=== PATIENT | female | born 1995 | race Caucasian/White ===

== ENCOUNTER 2016-11-16 20:52 | Emergency (ER) | payer BC, OTHER ==
[2016-11-16 21:19] VITALS: BP 111/77; BMI 26.4
--- NOTE | 2016-11-16 21:40 | DR.GENAD ---
HPI - PCP Primary Care Physician: NFD - Complaint/Symptoms Chief Complaint Doctors Comments: Patient denies a history of smoking, or cardiopulmonary disease. Denies recent history of upper respiratory infection. She reports tichtness in her chest. Chief Complaint:: TIGHTNESS IN CHEST 4-5 DAYS, TIRED Self Treatment fo Chief Complaint: PEPTO BISMAL - Source History Provided: Patient - Mode of Arrival Mode of Arrival: Ambulatory - Timing Onset of Chief Complaint: 11/11/16 PMH - PMH Past Medical History: Yes Past Medical History: Asthma Past Surgical History: Yes Past Surgical History Comment: EYE SURGERY - Family History History of Family Medical Conditions: Yes Family Medical History: Hypertension - Social History Does patient currently use any type of tobacco product: No Have you used tobacco products in the last 12 months: No Type of Tobacco Use: None Does any household member use tobacco: No Alcohol Use: None Do you use any recreational Drugs:: No Lives With: Family Lives Where: Home - infectious screening In the last 2 months have you had wt loss of >10#?: NO Have you had fever, night sweats or hemotysis?: No Have you traveled outside the country in the last 6 months?: No Isolation: Standard ROS - Review of Systems Constitutional: No Symptoms Reported Eyes: No Symptoms Reported ENTM: No Symptoms Reported Respiratoy: No Symptoms Reported Cardiovascular: No Symptoms Reported Gastrointestinal/Abdominal: No Symptoms Reported Genitourinary: No Symptoms Reported Neurological: No Symptoms Reported PE - Vital Signs Vitals: Temperature 99.3 F Pulse Rate 68 Respiratory Rate 16 Blood Pressure [Right Arm] 119/89 Blood Pressure 111/77 O2 Sat by Pulse Oximetry 98 - General Limitations: Language Barrier General Appearance: Alert, In No Apparent Distress - Head Head Exam: Normal Inspection, Atraumatic - Eyes Eye exam: Normal Appearance, PERRL, EOMI - ENT ENT Exam: Normal Exam External Ear Exam: Normal External Inspection TM/Canal Exam: Bilateral Normal Nose Exam: Normal Nose Exam, Sinus Tenderness Mouth Exam: Normal Inspection, Drooling Throat Exam: Normal Inspection - Neck Neck Exam: Normal Inspection, Full ROM - Chest Chest Inspection: Normal Inspection, Symmetric Chest Wall Rise - Respiratory Respiratory Exam: Normal Lung Sounds Bilat Respiratory Exam: Bilateral Clear to Auscultation - Cardiovascular Cardiovascular Exam: Regular Rate, Normal Rhythm - Abdominal Exam Abdominal Exam: Normal Inspection, Normal Bowel Sounds Abdominal Tenderness: negative: RUQ, RLQ, LUQ, LLQ, Epigastrium, Suprapubic, Diffuse, Mild, Moderate, Severe, Other - Extremities Extremities Exam: Normal Inspection, Full ROM - Back Back Exam: Normal Inspection, Full ROM - Neurologic Neurological Exam: Alert, Oriented X3, CN II-XII Intact - Psychiatric Psychiatric Exam: Normal Affect - Skin Skin Exam: Warm, Dry, Intact Course - Reevaluation 1st: Unchanged ROR - XRAY XRAY Interpreted by: Radiologist (No cardiopulmonary disease) - Diagnosis Discharge Problem: Normal exam - Discharge Plan Condition: Stable - Follow ups/Referrals Follow ups/Referrals: NFD,None [Primary Care Provider] - 3 days - Instructions
--- NOTE | 2016-11-16 22:21 | RAD ---
EXAM: Chest X-ray INDICATION: Chest pain COMPARISION: No prior TECHNIQUE: PA and Lat, 2 view FINDINGS: The lungs are clear and the lung volumes are within normal limits. No pleural effusion or pneumothor ax. The cardiac silhouette and mediastinum are normal. The regional skeleton is intact. IMPRESSION: Normal Chest X-Ray Reported By:
== END 2016-11-16 22:40 | disposition home or self-care (01) ==
LOC: ER 20:52
DX: R07.89 Other chest pain (principal); Z00.6 Encounter for examination for normal comparison and control in clinical research program
CPT/HCPCS: 71020; 99282; 99283

== ENCOUNTER 2016-11-27 21:42 | Emergency (ER) | payer BC ==
[2016-11-27 21:48] VITALS: BP 115/74; BMI 25.7
--- NOTE | 2016-11-27 22:03 | DR.GENAD ---
HPI - PCP Primary Care Physician: NFD - Complaint/Symptoms Chief Complaint Doctors Comments: Patient stuck a splinter of wood into left foot just prior to coming to ED today Chief Complaint:: PT HAS A PIECE OF WOOD STUCK INTO THE SOLE OF HER LT FOOT" - Source History Provided: Patient - Mode of Arrival Mode of Arrival: Wheelchair - Timing Onset of Chief Complaint: 11/27/16 PMH - PMH Past Medical History: Yes Past Medical History: Asthma Past Surgical History: Yes Past Surgical History Comment: EYE - Family History History of Family Medical Conditions: Yes Family Medical History: Hypertension - Social History Do you use any recreational Drugs:: No Lives With: Family Lives Where: Home - infectious screening In the last 2 months have you had wt loss of >10#?: NO Have you had fever, night sweats or hemotysis?: No Have you traveled outside the country in the last 6 months?: No Isolation: Standard ROS - Review of Systems Eyes: No Symptoms Reported ENTM: No Symptoms Reported Respiratoy: No Symptoms Reported Cardiovascular: No Symptoms Reported Gastrointestinal/Abdominal: No Symptoms Reported Genitourinary: No Symptoms Reported Neurological: No Symptoms Reported Musculoskeletal: No Symptoms Reported Integumentary: No Symptoms Reported Hematologic/Lymphatic: No Symptoms Reported Endocrine: No Symptoms Reported Psychiatric: No Symptoms Reported PE - Vital Signs Vitals: Temperature 99.5 F Pulse Rate 79 Respiratory Rate 18 Blood Pressure [Right Arm] 119/89 Blood Pressure 115/74 O2 Sat by Pulse Oximetry 99 - General Limitations: No Limitations General Appearance: Alert - Head Head Exam: Normal Inspection, Atraumatic - Eyes Eye exam: Normal Appearance, PERRL, EOMI - ENT ENT Exam: Normal Exam External Ear Exam: Normal External Inspection TM/Canal Exam: Bilateral Normal Nose Exam: Normal Nose Exam Mouth Exam: Normal Inspection Throat Exam: Normal Inspection - Neck Neck Exam: Normal Inspection - Chest Chest Inspection: Normal Inspection - Respiratory Respiratory Exam: Normal Lung Sounds Bilat Respiratory Exam: Bilateral Clear to Auscultation - Cardiovascular Cardiovascular Exam: Regular Rate, Normal Rhythm - Abdominal Exam Abdominal Exam: Normal Inspection Abdominal Tenderness: negative: RUQ, RLQ, LUQ, LLQ, Epigastrium, Suprapubic, Diffuse, Mild, Moderate, Severe, Other - Extremities Extremities Exam: Full ROM, Other (splinter in left foot plantar surface) - Back Back Exam: Normal Inspection, Full ROM - Neurologic Neurological Exam: Alert, Oriented X3, CN II-XII Intact - Psychiatric Psychiatric Exam: Normal Affect, Normal Mood - Skin Skin Exam: Warm, Dry ROR - Labs Reviewed Laboratory Results Reviewed?: Yes (Tetanus up to date) - XRAY XRAY Interpreted by: Self (splinter planter surface left foot 2-3cm) Procedures - Procedure Comments Procedures: Removed spliinter with forceps w/o problem - Diagnosis Discharge Problem: Foreign body foot/toe - Discharge Plan Condition: Stable - Follow ups/Referrals Follow ups/Referrals: NFD,None [Primary Care Provider] - 3 days - Instructions
--- NOTE | 2016-11-27 22:35 | RAD ---
HISTORY: Foreign body plantar aspect of left foot Study: Three views left foot Comparison: None Findings: There is a faint foreign body subcutaneously in the lateral plantar aspect of the foot measuring tricia roximately 6 millimeters in length and 1.5 millimeters thickness. Its attenuation suggest plastic or would as the cause of foreign body. No acute cortical disruption or dislocation can be identified. No significant soft tissue swelling or injury can be seen. The visualized portions of the talus an d calcaneus are unremarkable. IMPRESSION: 1. Subcutaneous lateral plantar foreign body Reported By:
== END 2016-11-27 22:36 | disposition home or self-care (01) ==
LOC: ER 21:42
PROC: 0HCNXZZ Extirpation of Matter from Left Foot Skin, External Approach (ICD-10-PCS; principal; 2016-11-27)
DX: S90.852A Superficial foreign body, left foot, initial encounter (principal); W45.8XXA Other foreign body or object entering through skin, initial encounter
CPT/HCPCS: 10120; 73630; 99282

== ENCOUNTER 2017-04-16 19:38 | Emergency (ER) | payer BC ==
[2017-04-16 19:44] VITALS: BP 122/86; BMI 24.5
--- NOTE | 2017-04-16 20:16 | DR.GENAD ---
HPI - Complaint/Symptoms Chief Complaint:: 6-7 WEEK OB LIGHT BLEEDING - Nurses notes reviewed Nurses Notes Review: Yes - Source History Provided: Patient - Mode of Arrival Mode of Arrival: Ambulatory - Timing Onset of Chief Complaint: 04/16/17 Came on: Gradually - Duration Duration: Intermittent How lon Duration: Hours - Location Location: vagina - Severity Severity: Mild - Modifying Factors Worsens:: nothing - Associated Signs and Symptoms Associated Signs and Symptoms: none PMH - PMH Past Medical History: No Past Medical History: Asthma Past Surgical History: Yes Past Surgical History Comment: EYE SURGERY 1999 - Family History History of Family Medical Conditions: No Family Medical History: Hypertension - Social History Does patient currently use any type of tobacco product: No Have you used tobacco products in the last 12 months: No Type of Tobacco Use: None Does any household member use tobacco: No Alcohol Use: None Do you use any recreational Drugs:: No Lives With: Family Lives Where: Home - infectious screening In the last 2 months have you had wt loss of >10#?: NO Have you had fever, night sweats or hemotysis?: No Have you traveled outside the country in the last 6 months?: No Isolation: Standard ROS - Review of Systems Constitutional: No Symptoms Reported Eyes: No Symptoms Reported ENTM: No Symptoms Reported Respiratoy: No Symptoms Reported Cardiovascular: No Symptoms Reported Gastrointestinal/Abdominal: No Symptoms Reported Genitourinary: Bleeding Neurological: No Symptoms Reported Musculoskeletal: No Symptoms Reported Integumentary: No Symptoms Reported Hematologic/Lymphatic: No Symptoms Reported Endocrine: No Symptoms Reported Psychiatric: No Symptoms Reported All Other Systems: Reviewed and Negative PE - Vital Signs Vitals: Temperature 98.9 F Pulse Rate 76 Respiratory Rate 18 Blood Pressure [Right Arm] 119/89 Blood Pressure 122/86 O2 Sat by Pulse Oximetry 99 - General Limitations: No Limitations General Appearance: Alert, In No Apparent Distress - Head Head Exam: Normal Inspection - Eyes Eye exam: Normal Appearance, EOMI. negative: Scleral Icterus, Conjunctival Injection - ENT ENT Exam: Normal Exam External Ear Exam: Normal External Inspection - Neck Neck Exam: Normal Inspection, Full ROM, Trachea Midline - Chest Chest Inspection: Normal Inspection - Respiratory Respiratory Exam: Normal Lung Sounds Bilat. negative: Accessory Muscle Use, Respiratory Distress - Cardiovascular Cardiovascular Exam: Regular Rate - Abdominal Exam Abdominal Exam: Normal Inspection, Normal Bowel Sounds, Soft. negative: Distention, Tenderness, Guarding - Extremities Extremities Exam: Normal Inspection, Full ROM - Back Back Exam: Normal Inspection - Neurologic Neurological Exam: Alert, Oriented X3, CN II-XII Intact - Psychiatric Psychiatric Exam: Normal Mood - Skin Skin Exam: Intact, Normal Color ROR - Labs Reviewed Laboratory: HCG, Quant 63293 mIU/mL (0-6) H 04/16/17 20:32 Specimen Type Clean catch urine 04/16/17 20:40 Urine Color Yellow (YELLOW) 04/16/17 20:40 Urine Appearance Clear (CLEAR) 04/16/17 20:40 Urine pH 6.0 (5.0 - 8.0) 04/16/17 20:40 Ur Specific [place] 1.020 (1.000-1.030) 04/16/17 20:40 Urine Protein Negative (NEGATIVE) 04/16/17 20:40 Urine Glucose (UA) Negative (NEGATIVE) 04/16/17 20:40 Urine Ketones Negative (NEGATIVE) 04/16/17 20:40 Urine Occult Blood 2+ (NEGATIVE) 04/16/17 20:40 Urine Nitrite Negative (NEGATIVE) 04/16/17 20:40 Urine Bilirubin Negative (NEGATIVE) 04/16/17 20:40 Urine Urobilinogen Normal (NORMAL) 04/16/17 20:40 Ur Leukocyte Esterase 1+ (NEGATIVE) 04/16/17 20:40 Urine RBC 0-2 /HPF (NEGATIVE) 04/16/17 20:40 Urine WBC 6-8 /HPF (NEGATIVE) 04/16/17 20:40 Ur Squamous Epith Cells Few /HPF (NEGATIVE) 04/16/17 20:40 Urine Bacteria 1+ /HPF (NEGATIVE) 04/16/17 20:40 Urine Mucus Moderate /HPF (NEGATIVE) 04/16/17 20:40 Ur Culture Indicated? Yes/culture set up 04/16/17 20:40 - XRAY XRAY Interpreted by: Radiologist XRAY Findings: Ob ultrsound: cardiac activity present no ectopic - Diagnosis Discharge Problem: Threatened in first trimester UTI (urinary tract infection) Qualifiers: Urinary tract infection type: acute cystitis Hematuria presence: without hematuria Qualified Code(s): N30.00 - Acute cystitis without hematuria - Discharge Plan Condition: Stable Prescriptions: Nitrofurantoin Macro [Macrobid Cap 100 mg Ext Rel] 100 mg PO BID #14 cap - Follow ups/Referrals Follow ups/Referrals: OLEG RODRIGUEZ [Primary Care Provider] - 3 days - Instructions
[2017-04-16 20:54] LABS: BILIRUBIN,URINE NEGATIVE (NEGATIVE); BLOOD/HEMOGLOBIN,URINE 2+ (NEGATIVE); GLUCOSE, URINE NEGATIVE (NEGATIVE); KETONES,URINE NEGATIVE (NEGATIVE); LEUKOCYTE ESTERASE ,URINE 1+ (NEGATIVE); NITRITES,URINE NEGATIVE (NEGATIVE); PROTEIN,URINE NEGATIVE (NEGATIVE); UROBILINOGEN,URINE NORMAL (NORMAL)
[2017-04-16 21:02] LABS: APPEARANCE,URINE CLEAR (CLEAR); COLOR,URINE YELLOW (YELLOW)
[2017-04-16 21:03] LABS: BACTERIA,URINE 1+ /HPF (NEGATIVE); MUCUS,URINE MODERATE /HPF (NEGATIVE); RBC,URINE 0-2 /HPF (NEGATIVE); SQUAMOUS EPITHELIAL CELL,UR FEW /HPF (NEGATIVE)
--- NOTE | 2017-04-16 21:47 | US ---
ULTRASOUND PELVIS FIRST TRIMESTER OB CLINICAL INDICATION: Early with spotting LMP: 02/18/2017 PROCEDURE: Grayscale and color Doppler images of the pelvis were obtained utilizing a transvaginal a pproach. COMPARISON: None FINDINGS: Intrauterine , with a crown-rump length measuring 0.4 cm, which is compatible wit h a gestational age of 6 weeks 0 days. Gestational age by LMP is 8 weeks 1 day. Cardiac motion detec carolin but unable to measure heart rate. IMPRESSION: 1. First trimester with gestational age of 6 weeks 0 days. Cardiac motion reportedly visua lized but unable to be measured. Reported By:
== END 2017-04-16 23:42 | disposition home or self-care (01) ==
LOC: ER 19:50
DX: O20.0 Threatened abortion (principal); N30.00 Acute cystitis without hematuria; Z3A.01 Less than 8 weeks gestation of pregnancy
CPT/HCPCS: 36415; 76801; 81001; 84702; 87086; 99283; 99284

== ENCOUNTER 2017-04-20 02:27 | Emergency (ER) | payer BC, OTHER ==
[2017-04-20 02:45] VITALS: BP 137/84; BMI 24.5
--- NOTE | 2017-04-20 02:52 | DR.GENAD ---
HPI - Complaint/Symptoms Chief Complaint Doctors Comments: Patient states that she had light bleeding this week. She spoke with Dr Infante today was advised to stay off feet. It appeared like she was trying to miscarrage. Patient denies pain. Chief Complaint:: BEGAN VAGINAL BLEEDING THIS AM. STATES THAT SHE PASSED SEVERAL CLOTS ABOUT 30 MINUTES AGO. 6 WEEKS 5 DAYS . DENIES ANY CRAMPING. Self Treatment fo Chief Complaint: NONE - Source History Provided: Patient - Mode of Arrival Mode of Arrival: Ambulatory - Timing Onset of Chief Complaint: 04/18/17 PMH - PMH Past Medical History: No Past Medical History: Asthma Past Surgical History: Yes Past Surgical History Comment: EYE SURGERY (1999) - Family History History of Family Medical Conditions: No Family Medical History: Hypertension - Social History Do you use any recreational Drugs:: No - infectious screening Have you traveled outside the country in the last 6 months?: No ROS - Review of Systems Eyes: No Symptoms Reported ENTM: No Symptoms Reported Respiratoy: No Symptoms Reported Cardiovascular: No Symptoms Reported Gastrointestinal/Abdominal: No Symptoms Reported Genitourinary: No Symptoms Reported Neurological: No Symptoms Reported Musculoskeletal: No Symptoms Reported Integumentary: No Symptoms Reported Hematologic/Lymphatic: No Symptoms Reported Endocrine: No Symptoms Reported Psychiatric: No Symptoms Reported All Other Systems: Reviewed and Negative PE - Vital Signs Vitals: Temperature 98.6 F Pulse Rate 86 Respiratory Rate 18 Blood Pressure [Right Arm] 119/89 Blood Pressure 137/84 O2 Sat by Pulse Oximetry 100 - General Limitations: No Limitations General Appearance: Alert, In No Apparent Distress - Head Head Exam: Normal Inspection, Atraumatic - Eyes Eye exam: Normal Appearance, PERRL, EOMI - ENT ENT Exam: Normal Exam External Ear Exam: Normal External Inspection TM/Canal Exam: Bilateral Normal Nose Exam: Normal Nose Exam, Sinus Tenderness Mouth Exam: Normal Inspection Throat Exam: Normal Inspection - Neck Neck Exam: Normal Inspection - Chest Chest Inspection: Normal Inspection - Respiratory Respiratory Exam: Normal Lung Sounds Bilat Respiratory Exam: Bilateral Clear to Auscultation - Cardiovascular Cardiovascular Exam: Regular Rate, Normal Rhythm - Abdominal Exam Abdominal Exam: Normal Inspection Abdominal Tenderness: negative: RUQ, RLQ, LUQ, LLQ, Epigastrium, Suprapubic, Diffuse, Mild, Moderate, Severe, Other - Back Back Exam: Normal Inspection, Full ROM - Neurologic Neurological Exam: Alert, Oriented X3, CN II-XII Intact - Psychiatric Psychiatric Exam: Normal Affect, Normal Mood - Skin Skin Exam: Warm, Dry, Intact ROR - XRAY XRAY Interpreted by: Radiologist (There is a fluid collection in the lower uterine segment. There is a 9mm echogenic focus within the fluid collection which could represent a hematoma. Findings may represent an incomplete . Short term followup is recommended) - Diagnosis Discharge Problem: Possible incomplete - Discharge Plan Condition: Stable - Follow ups/Referrals Follow ups/Referrals: OLEG RODRIGUEZ [Primary Care Provider] - 3 days - Instructions
--- NOTE | 2017-04-20 04:32 | US ---
Exam: Transvaginal pelvic ultrasound History: Vaginal bleeding, Comparison: No prior ultrasound for comparison Technique: Grayscale, color, and power Doppler imaging of the pelvis was performed using a transvagi nal approach. Findings: The uterus is 7.4 cm in length. There is a fluid collection in the lower uterine segment. There is a 9 mm round echogenic focus in the region of the cervical os. There is fluid in the cervi x. Conclusion: There is a fluid collection in the lower uterine segment. There is a 9 mm echogenic focus within the fluid collection which could represent a hematoma. Findings may represent an incomplete . S hort-term followup is recommended. Reported By:
== END 2017-04-20 04:57 | disposition home or self-care (01) ==
LOC: ER 02:27
DX: O03.9 Complete or unspecified spontaneous abortion without complication (principal)
CPT/HCPCS: 76801; 99284

== ENCOUNTER 2018-02-19 06:30 | Inpatient (IN) ==
[2018-02-19] MEDS ORDERED: D5 1/2 NS 1000 ML 1,000 ML IV ONE (06:31)
[2018-02-19] MEDS ORDERED: D5 1/2 NS 1L W PITOCIN 20 UNITS/L 20 UNITS/1,000 ML BAG IV ONE (06:31)
[2018-02-19] MEDS ORDERED: D5LR 1L W PITOCIN 10 UNITS/L 10 UNITS/1,000 ML BAG IV ONE (06:31)
[2018-02-19] MEDS ORDERED: PITOCIN ONE (06:31)
[2018-02-19] MEDS ORDERED: LR 1000 ML IV 1,000 ML IV ONE (06:32)
[2018-02-19] MEDS ORDERED: NAROPIN EPIDURAL 0.2% + FENTANYL 90MCG 60 ML EPI ONE (06:32)
[2018-02-19] MEDS ORDERED: FENTANYL INJ 100 mcg ONE (06:32)
--- NOTE | 2018-02-19 07:17 | DR.OB ---
OB Quick Note - Assessment/Plan Assessment/Plan: L&D 02/19/18 at 7:00am S-No complaint. O-Afebrile,VSS QEV=251 with good LTV, +accel, no decel. CTX=none CVX=2cm/50%/-1/VTX AROM with clear fluid. IUPC and FSE placed. A-IUP at 38 5/7 weeks for induction PIH P-Begin pitocin induction F/U preeclamptic labs Anticipate
[2018-02-19] MEDS ORDERED: D5LR 1L W PITOCIN 10 UNITS/L 10 UNITS/1,000 ML BAG IV PRN (07:32)
[2018-02-19] MEDS ORDERED: PITOCIN IVP ONE (07:32)
[2018-02-19] MEDS ORDERED: PHENERGAN INJ 25 MG IV PRN ×2 (07:32→11:17)
[2018-02-19] MEDS ORDERED: D5 1/2 NS 1000 ML 1,000 ML IV SCH (07:32)
[2018-02-19] MEDS ORDERED: REGLAN INJ 10 MG VIAL IVP PRN (07:32)
[2018-02-19] MEDS ORDERED: NUBAIN INJ 200 MG VIAL MULTIDOSE IVP PRN (07:32)
[2018-02-19] MEDS ORDERED: MORPHINE SULFATE INJ 2 MG INJ IVP PRN (07:32)
[2018-02-19 08:00] LABS: URIC ACID 3.4 mg/dL (2.6-6.0)
[2018-02-19] MEDS ORDERED: MOTRIN TAB 800 MG PO PRN (11:17)
[2018-02-19] MEDS ORDERED: DERMOPLAST SPRAY TOP PRN (11:54)
[2018-02-19] MEDS ORDERED: AMBIEN PO PRN (11:54)
[2018-02-19] MEDS ORDERED: ADACEL or BOOSTRIX TDaP VACCINE IM ONE ×2 (11:54→21:36)
[2018-02-19] MEDS ORDERED: MILK OF MAGNESIA PO PRN (11:54)
--- NOTE | 2018-02-19 14:23 | DR.OB ---
OB Quick Note - Assessment/Plan Assessment/Plan: Delivery Note MANAGER ORDER 02/19/18 at 11:10am Patient complete and pushing. Head delivered over intact perineum. No nuchal cord. Nose and mouth bulb suctioned. Body delivered over intact perineum. Cord clamped x 2 and cut. Infant handed to attendant. Cord sent for gases. Placenta delivered spontaneously / intact / 3 vessel cord. No CVX / vaginal / perineal tears. Viable male infant, VTX/OA, wt=6'8" and 9/9, stable to NBN. Mother stable to RR. [id number].
[2018-02-19] MEDS: D5 1/2 NS 1000 ML 1,000 ML with PITOCIN 20 UNITS IV SCH ×4 (14:45→22:46)
[2018-02-19] MEDS: FERROUS GLUCONATE PO SCH (16:59)
[2018-02-19] MEDS: ZANTAC PO SCH (21:42)
[2018-02-20] MEDS: D5 1/2 NS 1000 ML 1,000 ML with PITOCIN 20 UNITS IV SCH ×2 (05:32)
[2018-02-20 05:38] LABS: HEMATOCRIT 33.3 % (36.0-47.0); HEMOGLOBIN 11.3 g/dL (12.0-16.0)
[2018-02-20] MEDS: FERROUS GLUCONATE PO SCH ×2 (06:14→16:15)
[2018-02-20] MEDS ORDERED: DEPO-PROVERA CONTRACEPTIVE INJ IM ONE (07:45)
[2018-02-20] MEDS: ZANTAC PO SCH ×2 (08:48→21:00)
[2018-02-20] MEDS ORDERED: PRENATAL PLUS PO SCH (09:00)
[2018-02-20] MEDS ORDERED: MYLICON TAB 80 MG CHEW PO ONE (10:08)
[2018-02-20 22:26] VITALS: BP 117/77
== END 2018-02-20 20:45 | disposition home or self-care (01) | DRG 775 ==
LOC: LD 06:34 → MED/SURG 12:01
PROVIDERS: ADMIT Specialist; ATTEND Specialist
DX: Z37.0 Single live birth; O13.3 Gestational [pregnancy-induced] hypertension without significant proteinuria, third trimester; Z3A.38 38 weeks gestation of pregnancy; O99.013 Anemia complicating pregnancy, third trimester; Z23 Encounter for immunization; D50.8 Other iron deficiency anemias
CPT/HCPCS: 36415; 59409; 83615; 84450; 84460; 84550; 85014; 85018; 85384; 85610; 85730; 90715; A4216; A4222; S0197; J1050; J2590; J2765; J3010; J7120; S5010

== ENCOUNTER 2020-09-03 21:22 | Inpatient (IN) ==
[2020-09-03 21:54] VITALS: BMI 30.8
[2020-09-03] MEDS ORDERED: LR 1000 ML IV 1,000 ML IV ONE (23:04)
[2020-09-03 23:08] LABS: BILIRUBIN,URINE NEGATIVE (NEGATIVE); BLOOD/HEMOGLOBIN,URINE NEGATIVE (NEGATIVE); GLUCOSE, URINE NEGATIVE (NEGATIVE); KETONES,URINE NEGATIVE (NEGATIVE); LEUKOCYTE ESTERASE ,URINE NEGATIVE (NEGATIVE); NITRITES,URINE NEGATIVE (NEGATIVE); PROTEIN,URINE NEGATIVE (NEGATIVE); UROBILINOGEN,URINE NORMAL (NORMAL)
[2020-09-03 23:11] LABS: APPEARANCE,URINE CLEAR (CLEAR); COLOR,URINE PALE YELLOW (YELLOW)
[2020-09-03] MEDS ORDERED: REGLAN INJ 10 MG VIAL IVP PRN (23:28)
[2020-09-03] MEDS ORDERED: D5LR 1L W PITOCIN 10 UNITS/L 10 UNITS/1,000 ML BAG IV PRN (23:28)
[2020-09-03] MEDS ORDERED: PITOCIN IVP ONE (23:28)
[2020-09-03] MEDS ORDERED: PHENERGAN INJ 25 MG IM PRN (23:28)
[2020-09-03] MEDS ORDERED: STADOL INJ IVP PRN (23:30)
[2020-09-03] MEDS ORDERED: PITOCIN ONE (23:42)
[2020-09-03] MEDS ORDERED: D5 1/2 NS 1L W PITOCIN 20 UNITS/L 20 UNITS/1,000 ML BAG IV ONE (23:43)
[2020-09-03] MEDS ORDERED: NAROPIN EPIDURAL 0.2% 100 ML ONE (23:44)
[2020-09-03] MEDS ORDERED: FENTANYL INJ 100 mcg ONE ×2 (23:44)
[2020-09-03] MEDS ORDERED: D5 1/2 NS 1000 ML 1,000 ML IV SCH (23:45)
[2020-09-04 00:05] LABS: BASOPHILS % (AUTO) 0.4 % (0.2-1.0); EOSINOPHILS % (AUTO) 0.1 % (0.9-2.9); LYMPHOCYTES # (AUTO) 1.6 X10^3/uL (1.3-2.9); LYMPHOCYTES % (AUTO) 15.6 % (21.0-51.0); MEAN CORPUSCULAR HEMOGLOBIN 24.1 pg (27.0-34.0); MEAN CORPUSCULAR HGB CONC 32.5 g/dL (33.0-35.0); MEAN PLATELET VOLUME 8.4 fL (7.4-11.0); MONOCYTES # (AUTO) 0.6 x10^3/uL (0.3-0.8); MONOCYTES % (AUTO) 5.5 % (0.0-13.0); NEUTROPHILS # (AUTO) 8.1 x10^3/uL (2.2-4.8); NEUTROPHILS % (AUTO) 78.4 % (42.0-75.0); PLATELET COUNT 178 X10^3/uL (150.0-450.0); WHITE BLOOD COUNT 10.3 X10^3/uL (3.6-10.0)
[2020-09-04 00:08] LABS: BLOOD UREA NITROGEN 8 mg/dL (7-18); CARBON DIOXIDE 23.7 mmol/L (21-32); CHLORIDE 101 mmol/L (98-107); CREATININE 0.88 mg/dL (0.55-1.02); SODIUM 136 mmol/L (136-145); eGFR NON BLACK RACES > 60 (>60)
[2020-09-04 00:15] LABS: MICROCYTOSIS SLIGHT; PLATELET MORPHOLOGY COMMENT NORMAL (NORMAL)
[2020-09-04] MEDS ORDERED: MOTRIN TAB 800 MG PO PRN ×2 (03:27→03:31)
[2020-09-04] MEDS ORDERED: PHENERGAN INJ 25 MG IM PRN (03:27)
[2020-09-04] MEDS ORDERED: ADACEL or BOOSTRIX TDaP VACCINE IM ONE (03:31)
[2020-09-04] MEDS ORDERED: DERMOPLAST PAIN RELIEF SPRAY TOP PRN (03:31)
[2020-09-04] MEDS ORDERED: AMBIEN PO PRN (03:31)
[2020-09-04] MEDS ORDERED: MILK OF MAGNESIA PO PRN (03:31)
[2020-09-04] MEDS ORDERED: D5 1/2 NS 1000 ML 1,000 ML with PITOCIN 20 UNITS IV SCH ×2 (04:00)
[2020-09-04] MEDS ORDERED: DERMOPLAST PAIN RELIEF SPRAY ONE (04:36)
[2020-09-04 06:42] LABS: HEMATOCRIT 36.1 % (36.0-47.0); HEMOGLOBIN 11.4 g/dL (12.0-16.0)
[2020-09-04] MEDS: PRENATAL PLUS PO SCH (08:40)
[2020-09-04] MEDS ORDERED: LANOLIN TOP PRN (18:46)
[2020-09-05] MEDS ORDERED: DEPO-PROVERA CONTRACEPTIVE INJ IM ONE (07:15)
--- NOTE | 2020-09-05 07:15 | NOTE.PROOB ---
progress Note OB- Subjective Data Subjective: No complaints, decreased lochia. Tolerating {regular diet. No N/V. Ambulating well. No dysuria. Objective Data Result Diagrams: 09/04/20 05:12 09/03/20 23:45 Objective Data: CV= RRR no MRG Lungs=CTA Bilaterally Abd=(+) BS, soft, NTND, Fundus firm/NT/ at { } cm below umbilicus. Ext=no edema, NT, no cords Plan (1) Normal vaginal delivery: Plan: ready for d/c
[2020-09-05] MEDS ORDERED: ADACEL or BOOSTRIX TDaP VACCINE IM ONE (08:00)
[2020-09-05] MEDS: PRENATAL PLUS PO SCH (08:29)
[2020-09-05 08:36] VITALS: BP 125/63
== END 2020-09-05 11:40 | disposition home or self-care (01) | DRG 807 ==
LOC: ER 21:25 → LD 22:30 → MED/SURG 09-04 03:35
PROVIDERS: ADMIT Obstetrics & Gynecology; ATTEND Obstetrics & Gynecology